=== PATIENT | female | born 2000 | race Caucasian/White ===

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

== ENCOUNTER 2019-03-12 13:00 | Emergency (ER) | payer BC ==
[2019-03-12 13:14] VITALS: BP 107/58
== END 2019-03-12 14:03 | disposition left against medical advice (07) ==
LOC: UCEAST 13:00
DX: H93.90 Unspecified disorder of ear, unspecified ear (principal); Z53.21 Procedure and treatment not carried out due to patient leaving prior to being seen by health care provider

== ENCOUNTER 2020-01-13 19:01 | Emergency (ER) | payer BC ==
--- OUTSIDE RECORDS SUMMARY | 2020-01-13 19:31 | XMS REPORT | Continuity of Care Document ---
:2000 External Reference #:[id number] Author Name Nadiya Araya PA (transmitted by agent of provider Max Mccoy) Address [address] [facility] [address] [place] [address] Problems Active Problems Provider Date Generalized anxiety disorder Valeria Norman RPA-C Onset: 02/18/2015 Bipolar disorder Max Mccoy D.O. Onset: 01/10/2016 Anxiety state Max Mccoy D.O. Onset: 01/10/2016 High risk sexual behavior Max Mccoy D.O. Onset: 01/20/2016 Vitamin D deficiency Max Mccoy D.O. 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 Onset: 02/10/2016 Vitamin B-complex deficiency Max Mccoy D.O. Onset: 02/10/2016 Insomnia Max Mccoy D.O. Onset: 03/31/2016 Recurrent major depressive episodes Max Mccoy D.O. Onset: 08/21/2017 Genital herpes simplex Nadiya Araya PA Onset: 07/24/2018 Dysmenorrhea Nadiya Araya PA Onset: 02/19/2019 Social History Type Date Description Comments Sex Unknown Tobacco Use Start: Unknown Denies Cigarette Use Smoking Status Reviewed: 11/07/18 Denies Cigarette Use ETOH Use Denies alcohol use Tobacco Use Start: Unknown Non Smoker Recreational Drug Use Marijuana occasional Enjoy Exercising Enjoys exercising dance, just dance, Wii Sun Exposure Uses sunscreen Allergies, Adverse Reactions, Alerts Active Allergies Reaction Severity Comments Date Augmentin 12/16/2014 Latex 11/28/2017 Medications Active Medications SIG Qnty Indications Ordering Date Provider Benzoyl apply to 46.6units L70.0 Max Mccoy, 04/28/2019 Peroxide-Erythromyci affected areas D.O. n twice a day 5-3% Gel Vyfemla on tab po daily 84tabs Max Mccoy, 04/18/2019 0.4-35mg-mcg as directed D.O. Tablets Medications Administered in Office Medication SIG Qnty Indications Ordering Provider Date TB Intradermal Test Nadiya Araya PA 02/19/2019 Injection TB Intradermal Test Nurse's Schedule 07/10/2017 Injection SC/Im Injections Nurse's Schedule 12/05/2016 Injection injection, kenalog, 10 mg Max Mccoy D.OCarline 09/28/2016 Injection SC/Im Injections Nurse's Schedule 09/13/2016 Injection SC/Im Injections Nurse's Schedule 06/22/2016 Injection Immunizations CPT Code Status Date Vaccine Lot # [id number] Given 01/10/2016 Menactra Menningitis Vaccine [id number] 36380 Given 01/10/2016 Gardasil 9 HPV vaccine; Nonavalent 3 Dose Schedule [id number] [place] [id number] Given 06/11/2015 Gardasil 9 HPV vaccine; Nonavalent 3 Dose [place] [id number] [place] [address] Given 03/04/2015 Gardasil HPV vaccine [id number] 82329 Given 06/24/2011 Menomune Meningococcal Immunization 98239 Given 06/24/2011 Hep A, Ped/Adolscent, 2 Dose 33414 Given 10/14/2010 Adacel or Boostrix, TDaP 06866 Given 05/24/2010 Hep A, Ped/Adolscent, 2 Dose 21960 Given 05/24/2010 Varicella (Chicken Pox) Immunization 08325 Given 06/15/2004 DTP Immunization 60879 Given 06/15/2004 Poliomyelitis Immunization 02901 Given 06/15/2004 MMR Virus Immunization 56435 Given 12/06/2000 DTP Immunization 84925 Given 12/06/2000 Hib 4 Dose, Acthib 06616 Given 09/07/2000 MMR Virus Immunization 51527 Given 09/07/2000 Varicella (Chicken Pox) Immunization 62598 Given 03/16/2000 Hep B Immunization, Ped/Adolescent To 11 Yrs 46373 Given 03/16/2000 Poliomyelitis Immunization 25515 Given 03/16/2000 DTP Immunization 43746 Given 03/16/2000 Hib 4 Dose, Acthib 21834 Given 01/16/2000 Hib 4 Dose, Acthib 30402 Given 01/16/2000 Hep B Immunization, Ped/Adolescent To 11 Yrs 03876 Given 01/16/2000 Poliomyelitis Immunization 30436 Given 01/16/2000 DTP Immunization 16373 Given 1999 Poliomyelitis Immunization 88963 Given 1999 DTP Immunization 83232 Given 1999 Hib 4 Dose, Acthib 57849 Given 1999 Hep B Immunization, Ped/Adolescent To 11 Yrs [id number] Refused 11/28/2017 Influenza Virus Vaccine, Quadrivalent, Split, Preservative Free Vital Signs Date Vital Result Comment 02/19/2019 2:39pm BP Systolic 100 mmHg BP Diastolic 60 mmHg Height 64.75 inches 5'4.75" Weight 174.00 lb BMI (Body Mass Index) 29.2 kg/m2 Body Mass Index Percentile 92 % 11/07/2018 12:01pm BP Systolic 116 mmHg BP Diastolic 80 mmHg Height 64.50 inches 5'4.50" Weight 162.50 lb BMI (Body Mass Index) 27.5 kg/m2 Body Mass Index Percentile 89 % Results Description No Information Available Procedures Description No Information Available Medical Devices Description No Information Available Encounters Description No Information Available Assessments Description No Information Available Plan of Treatment No Information Available Functional Status Description No Information Available Mental Status Description No Information Available Referrals Description No Information Available
[2020-01-13 20:22] VITALS: BP 107/62
[2020-01-13 20:31] LABS: Influenza A Molecular Negative (Negative); Influenza B Molecular Negative (Negative)
--- NOTE | 2020-01-13 21:05 | UC ---
Respiratory Complaint HPI - HPI Summary HPI Summary: 5 DAYS AGO WENT TO [facility] AND WAS DIAGNOSED WITH BRONCHITIS. FELT SHE WAS NOT IMPROVING SO WENT BACK YESTERDAY AND REPORTS SHE WAS DIAGNOSED WITH ACUTE PNEUMONIA AND GIVEN A Z-SURESH. STATES FEVER OF 101.1 YESTERDAY ALONG WITH COUGH, CHEST TIGHTNESS, SHORTNESS OF BREATH. 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 DENIES ANY RECENT TRAVEL BUT WOULD LIKE COVID 19 TESTING. - History of Current Complaint Chief Complaint: UCRespiratory Stated Complaint: RESP COMPLAINT Time Seen by Provider: 01/13/20 20:10 Hx Obtained From: Patient Hx Last Menstrual Period: 12/20/2019 Onset/Duration: Gradual Onset, Lasting Days, Still Present Timing: Constant Severity Initially: Moderate Severity Currently: Moderate Pain Intensity: 5 Pain Scale Used: 0-10 Numeric Character: Cough: Nonproductive Aggravating Factors: Nothing Alleviating Factors: Nothing Associated Signs And Symptoms: Positive: Dyspnea, Fever, URI, Nasal Congestion - Allergies/Home Medications Allergies/Adverse Reactions: Allergies Allergy/AdvReac Type Severity Reaction Status Date / Time amoxicillin [From Augmentin] Allergy Rash Verified 01/13/20 19:51 clavulanic acid Allergy Rash Verified 01/13/20 19:51 [From Augmentin] latex Allergy itchy Verified 01/13/20 19:51 Home Medications: Home Medications Albuterol HFA INHALER* [Ventolin HFA Inhaler*] 1 puff INH Q4H PRN 01/13/20 [ History Confirmed 01/13/20] Azithromycin TAB* [Zithromax TAB (Z-SURESH) 250 mg #6 tabs] 250 mg PO DAILY [History Confirmed 01/13/20] L.acidoph,Paracasei, B.lactis [Probiotic] 1 each PO DAILY 01/13/20 [History Confirmed 01/13/20] Pnv No.95/Ferrous Fum/Folic AC [ Caplet] 1 each PO DAILY 01/13/20 [ History Confirmed 01/13/20] PMH/Surg Hx/FS Hx/Imm Hx Previously Healthy: Yes - Surgical History Surgical History: Yes Surgery Procedure, Year, and Place: tonsillectomy, - Family History Known Family History: Positive: Hypertension - grandmother had in the past, but is now off meds., Respiratory Disease - asthma Family History: Mom and grandmother with endometriosis. Aunt with ovarian CA - Social History Alcohol Use: None Substance Use Type: Marijuana Substance Use Comment - Amount & Last Used: daily Smoking Status (MU): Never Smoked Tobacco - Immunization History Vaccination Up to Date: Yes Review of Systems All Other Systems Reviewed And Are Negative: Yes Constitutional: Positive: Fever, Chills, Fatigue ENT: Negative: Sore Throat Respiratory: Positive: Shortness Of Breath, Cough Cardiovascular: Positive: Negative Gastrointestinal: Positive: Negative Physical Exam Triage Information Reviewed: Yes Appearance: Well-Appearing, No Pain Distress, Well-Nourished Vital Signs: Initial Vital Signs Temp 98.9 F 01/13/20 19:52 Pulse 82 01/13/20 19:52 Resp 18 01/13/20 19:52 BP 107/62 01/13/20 19:52 Pulse Ox 99 01/13/20 19:52 Laboratory Tests 01/13/20 20:19 Influenza A (Rapid) Negative Influenza B (Rapid) Negative Vital Signs Reviewed: Yes Eyes: Positive: Conjunctiva Clear ENT: Positive: Hearing grossly normal, Pharynx normal, TMs normal Neck: Positive: Supple, Nontender, No Lymphadenopathy Respiratory Exam: Normal Cardiovascular Exam: Normal Abdomen Description: Positive: Soft Musculoskeletal: Positive: No Edema Neurological: Positive: Alert Psychological: Positive: Age Appropriate Behavior Skin: Negative: Rashes Respiratory Course/Dx - Course Course Of Treatment: FLU NEGATIVE. SWAB SENT FOR COVID-19 TESTING. PATIENT IS DISCHARGED HOME TO SELF-ISOLATION. ADVISED TO CALL 911 IF SYMPTOMS WORSEN. - Differential Dx/Diagnosis Provider Diagnosis: Acute viral syndrome Discharge ED - Sign-Out/Discharge Documenting (check all that apply): Patient Departure All imaging exams completed and their final reports reviewed: No Studies - Discharge Plan Condition: Stable Disposition: HOME Patient Education Materials: Viral Syndrome (ED) Referrals: [facility] [Outside] Additional Instructions: FLU NEG. TESTING FOR COVID-19 COMPLETED TODAY. YOU SHOULD EXPECT RESULTS IN 2-6 DAYS. YOU'RE BEING DISCHARGED TO SELF-ISOLATION AT HOME. THE HEALTH DEPARTMENT WILL BE FOLLOWING UP WITH YOU. CALL 911 IF YOU DEVELOP WORSENING RESPIRATORY DISTRESS, FEVER, PAIN OR ANY OTHER CONCERNING SYMPTOMS. CALL THE NUMBER BELOW FOR ASSISTANCE IN ESTABLISHING WITH A PCP An additional resource available to assist in finding the appropriate physician for your health care needs is the [facility] ([facility]). You may contact them by calling [phone]. - Billing Disposition and Condition Condition: STABLE Disposition: Home
== END 2020-01-13 21:05 | disposition home or self-care (01) ==
LOC: UCEAST 19:01
DX: B34.9 Viral infection, unspecified (principal); Z88.0 Allergy status to penicillin; Z88.1 Allergy status to other antibiotic agents; Z91.040 Latex allergy status
CPT/HCPCS: 99211; G0463; U0002

== ENCOUNTER 2020-01-16 13:03 | Emergency (ER) | payer BC ==
--- NOTE | 2020-01-16 13:50 | ED ---
Respiratory - HPI Summary HPI Summary: 19 year old F arriving via private car to [facility] complains of cough, chest heaviness, shortness of breath, intermittent fever for 1.5 weeks. 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 Last week, patient had a sore throat which lasted for 3-4 days. No sore throat currently. She was seen by her primary care provider and was dx bronchitis. She did not have CXR done and was not placed on antibiotics at the time because she thought she might be . She was given an albuterol inhaler which she has been using with minimal relief. She went back to primary care provider and was dx pneumonia. She was then placed on azithromycin, took 3 days of it, then told to discontinue it. She has also been using albuterol inhaler with no relief. Patient has been tested for influenza and COVID19 which were both negative. She is not doing better. Patient denies chest congestion. The patient rates the pain 6/10 in severity. Symptoms aggravated by nothing. Symptoms alleviated by nothing. Medications reviewed. Allergies noted. - History of Current Complaint Chief Complaint: EDUpperRespComplaint Stated Complaint: SOB, COUGHING PER PT Time Seen by Provider: 01/16/20 13:32 Hx Obtained From: Patient Onset/Duration: Lasting Weeks - 1.5, Still Present Timing: Intermittent Episodes Lasting: Current Severity: Moderate Pain Intensity: 6 Aggravating Factor(s): Nothing Alleviating Factor(s): Nothing - Allergy/Home Medications Allergies/Adverse Reactions: Allergies Allergy/AdvReac Type Severity Reaction Status Date / Time amoxicillin [From Augmentin] Allergy Rash Verified 01/13/20 19:51 clavulanic acid Allergy Rash Verified 01/13/20 19:51 [From Augmentin] latex Allergy itchy Verified 01/13/20 19:51 Home Medications: Home Medications L.acidoph,Paracasei, B.lactis [Probiotic] 1 each PO DAILY 01/13/20 [History Confirmed 01/16/20] Pnv No.95/Ferrous Fum/Folic AC [ Caplet] 1 each PO DAILY 01/13/20 [ History Confirmed 01/16/20] Benzonatate CAP* [Tessalon 100 MG CAP*] 100 mg PO TID PRN 10 Days #30 cap [Rx] Elderberry Fruit and Flower [Black Elderberry 575 mg] 1 cap PO DAILY 01/16/20 [ History Confirmed 01/16/20] PMH/Surg Hx/FS Hx/Imm Hx Endocrine/Hematology History: Denies: Hx Diabetes, Hx Thyroid Disease Cardiovascular History: Denies: Hx Hypertension Respiratory History: Denies: Hx Asthma, Hx Chronic Obstructive Pulmonary Disease (COPD) GI History: Reports: Other GI Disorders - Right ovarian cyst - Surgical History Surgery Procedure, Year, and Place: tonsillectomy Infectious Disease History: No Infectious Disease History: Denies: Hx Clostridium Difficile, Hx Hepatitis, Hx Human Immunodeficiency Virus (HIV), Hx of Known/Suspected MRSA, Hx Shingles, Hx Tuberculosis, Hx Known/ Suspected VRE, Hx Known/Suspected VRSA, History Other Infectious Disease, Traveled Outside the [place] in Last 30 Days - Family History Known Family History: Positive: Hypertension - grandmother had in the past, but is now off meds., Respiratory Disease - asthma Family History: Mom and grandmother with endometriosis. Aunt with ovarian CA - Social History Alcohol Use: None Hx Substance Use: Yes Substance Use Type: Reports: Marijuana Substance Use Comment - Amount & Last Used: daily Hx Tobacco Use: No Smoking Status (MU): Never Smoked Tobacco Review of Systems Positive: Fever ENT: Negative - congestion Negative: Sore Throat Positive: Shortness Of Breath, Cough All Other Systems Reviewed And Are Negative: Yes Physical Exam - Summary Physical Exam Summary: Constitutional: Well-developed, Well-nourished, Alert. (-) Distressed Skin: Warm, Dry HENT: Normocephalic; Atraumatic Eyes: Conjunctiva normal Neck: Musculoskeletal ROM normal neck. (-) JVD, (-) Stridor, (-) Nuchal rigidity Cardio: Rhythm regular, rate normal, Heart sounds normal; Intact distal pulses; Radial pulses are 2+ and symmetric. (-) Murmur Pulmonary/Chest wall: Effort normal. (-) Respiratory distress, (-) Wheezes, (-) Rales Abd: Soft, (-) tenderness, (-) Distension, (-) Guarding, (-) Rebound Musculoskeletal: (-) Edema Lymph: (-) Cervical adenopathy Neuro: Alert, Oriented x3 Psych: Mood and affect Normal Triage Information Reviewed: Yes Vital Signs On Initial Exam: Initial Vitals Temp Pulse Resp BP Pulse Ox 97.2 F 84 16 111/77 85 01/16/20 13:17 01/16/20 13:17 01/16/20 13:17 01/16/20 13:17 01/16/20 13:17 Vital Signs Reviewed: Yes Procedures - Sedation Patient Received Moderate/Deep Sedation with Procedure: No Diagnostics - Vital Signs Vital Signs Temp Pulse Resp BP Pulse Ox 01/16/20 13:17 97.2 F 84 16 111/77 85 - Laboratory Lab Statement: Any lab studies that have been ordered have been reviewed, and results considered in the medical decision making process. - Radiology CXR Radiology Interpretation Completed By: Radiologist - IMPRESSION: NO ACTIVE CARDIOPULMONARY DISEASE. ED physician has reviewed this imaging report. Disposition - Course Course Of Treatment: 19 y/o F p/w URI like symptoms. Well appearing, easy WOB on RA. 96-100%. Ambulated w no drop in O2 sat. CXR w/o PNA. D/w patient likely ongoing viral URI. Denies CP, feels some tightness w deep breathing and coughing. advised she can stop her albuterol if it isnt helping. Given tessalon pearls for cough - Diagnoses Provider Diagnoses: URI (upper respiratory infection) Discharge ED - Sign-Out/Discharge Documenting (check all that apply): Patient Departure - Discharge Plan Condition: Stable Disposition: HOME Prescriptions: Benzonatate CAP* [Tessalon 100 MG CAP*] 100 mg PO TID PRN 10 Days #30 cap PRN Reason: Cough Patient Education Materials: Upper Respiratory Infection (ED) Referrals: [facility] [Outside] Additional Instructions: You were seen in the emergency department for cough. Your x-ray did not show pneumonia. You can have a persistent cough after this for infection for up to 4 weeks. You can try Tessalon Perles for her cough. Please follow up with your primary care doctor in next 2-3 days and return to emergency department for trouble breathing, fevers, worsening or concerning symptoms. It was a pleasure taking care of you today. - Billing Disposition and Condition Condition: STABLE Disposition: Home - Attestation Statements Document Initiated by Scribe: Yes Documenting Scribe: Rola Gracia Provider For Whom Scribe is Documenting (Include Credential): Quintin Zeng MD Scribe Attestation: I, Rola Gracia, scribed for Quintin Zeng MD on 01/16/20 at 1532. Scribe Documentation Reviewed: Yes Provider Attestation: The documentation as recorded by the scribe, Rola Gracia accurately reflects the service I personally performed and the decisions made by me, Quintin Zeng MD Status of Scribe Document: Viewed
[2020-01-16] MEDS ORDERED: Benzonatate CAP* 100 MG PO ONE (15:03)
[2020-01-16 15:41] VITALS: BP 100/69
== END 2020-01-16 15:39 | disposition home or self-care (01) ==
LOC: ED 13:03
DX: J06.9 Acute upper respiratory infection, unspecified (principal); R05 Cough; R06.02 Shortness of breath; Z88.0 Allergy status to penicillin; Z91.040 Latex allergy status
CPT/HCPCS: 71045; 99283; A9270-GY